=== PATIENT | male | born 1950 | race Hispanic/Latino ===

== ENCOUNTER 2023-04-23 11:50 | Day surgery (SDC) | payer OTHER ==
[2023-04-23] MEDS ORDERED: BUPIVACAINE 0.5% PF 10 ML VIAL ONE (12:05)
[2023-04-23] MEDS ORDERED: LIDOCAINE 2% MPF 5 ML VIAL ONE (12:08)
[2023-04-23] MEDS ORDERED: FENTANYL CITR 100 MCG/2 ML ONE (12:08)
[2023-04-23] MEDS ORDERED: ONDANSETRON 4 MG/2 ML VIAL ONE (12:08)
[2023-04-23] MEDS ORDERED: propofoL 200 MG/20 ML VIAL IV ONE ×2 (12:08→12:52)
[2023-04-23 12:15] VITALS: O2SAT 97
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
[2023-04-23] MEDS ORDERED: CEFAZOLIN SODIUM 1 GM/VIAL ONE (12:32)
[2023-04-23] MEDS ORDERED: KETOROLAC 30 MG/ML INJ ONE (12:35)
--- NOTE | 2023-04-23 13:15 | P.OP ---
Preoperative diagnosis: Foreign body left index finger Postoperative diagnosis: The same Primary procedure: Exploration and removal of foreign body left index finger Secondary procedure: Fluoroscopy Anesthesia: MAC Estimated blood loss: Less than 1 cc Specimen: Specimen was sent Operative Technique: Patient was brought the operating room and placed supine on the table with the left arm extended to the side. After obtaining adequate sedation by anesthesia, the area of the left hand was prepped with a Betadine solution, he was draped in usual aseptic manner. With the hand face palm upwards fluoroscopy was done to initially demonstrate the area of the foreign body. It showed up as a 0.177 pellet on the C arm. With a gentle probe we were able to pass this down through the tract and ensure the direction and angle with which we needed to approach the foreign body with a mosquito clamp. This was done under direct vision. We were able to grasp the foreign body and pull it up towards the skin. It was necessary to extend our incision by approximately another 2 mm to allow it to come out through the initial penetration site. This having been done fluoroscopy was done 1 more time to ensure there was no other remaining fragments. Digital block was now performed with 0.25% Marcaine. A sterile dressing was applied. At the end of the procedure he was stable and sent to the recovery room. Complications: None Transferred to: Recovery Room Condition: Good
[2023-04-23 14:04] VITALS: BP 156/79; TEMP 97.2
--- NOTE | 2023-04-23 14:04 | RAD REPORT ---
EXAM DESCRIPTION: RAD - Fluoroscopy <1 Hour - 04/23/2023 1:15 pm CLINICAL HISTORY: LT 2nd digit FB removal COMPARISON: None available. FINDINGS: Three Images were sent to PACS, documenting needle positions during an image guided steroi d injection pain procedure. No radiologist was available for the procedure, nor will any image interp retation he provided. Please refer to the procedural report for additional details. Fluoroscopy time: 0.8 Minutes. IMPRESSION: Documentation of fluoroscopy utilization as above.
== END 2023-04-23 13:52 | disposition home or self-care (01) ==
LOC: OR 11:50
PROVIDERS: ATTEND Surgery
PROC: 0HBGXZZ Excision of Left Hand Skin, External Approach (ICD-10-PCS; 2023-04-23)
PROC: BW1JZZZ Fluoroscopy of Upper Extremity (ICD-10-PCS; principal; 2023-04-23 11:30)
DX: S60.451A Superficial foreign body of left index finger, initial encounter (principal)
CPT/HCPCS: 77002; 10120; J2704 ×2; J2001; J3010; J0690; 76000; J2405